=== PATIENT | female | born 1980 | race Caucasian/White ===

== ENCOUNTER → 2019-01-22 | Day surgery (SDC) | payer BC, OTHER ==
--- NOTE | 2019-01-21 11:30 | Pre Op History & Physical ---
DATE OF SURGERY: 01/22/2019 CHIEF COMPLAINT: Aural fullness bilaterally with chronic sinusitis and nasal obstruction. HISTORY OF PRESENT ILLNESS: This 38 years old female has aural fullness on the right side with some unsteadiness. The patient also has nasal obstruction and postnasal drip. The patient denies any otalgia. She has nausea. The patient has no surgery to the ear. She denies any tinnitus. The patient's nasal obstruction is bilateral with postnasal drip and discharge from her nose. She does complain of frontal and maxillary pain. The patient had an audiogram in October that showed that she has speech discrimination of 100% bilaterally with normal pure tone. The patient has a tympanogram which showed that she has normal type B tympanogram. CT scan of paranasal sinuses done before surgery showed the patient has chronic sinusitis with maxillary sinus involvement, sphenoid sinus involvement and confirmed deviated nasal septum to the left side. The patient also had an MRI of the skull base, which did not show any IC abnormality. The MRI did confirm the patient still has chronic sinusitis. The patient has been seen by steel plate printer and also a neurologist for her condition. I have also discussed with the patient the possibility of subclinical Meniere's disease that is giving her the aural fullness. REVIEW OF SYSTEMS: System review showed no recent cardiovascular, respiratory, or GI problem. PAST MEDICAL HISTORY: The patient has no significant medical problem. PAST SURGICAL HISTORY: The patient had previous tonsillectomy, lymph node biopsy, knee surgery, and surgery on her teeth. ALLERGIES: SHE IS ALLERGIC TO AUGMENTIN AND VICODIN. MEDICATIONS: She is on [place] Thyroid and also Paxil. SOCIAL HISTORY: She stopped smoking about 12 years ago. She is a social drinker. FAMILY HISTORY: Noncontributory. PHYSICAL EXAMINATION: VITAL SIGNS: On examination, patient's vital signs were within normal limits. The patient was seen with her . HEENT: Ear exam showed normal tympanic membranes bilaterally. Nasal exam showed deviated nasal septum on the right side about 40%, left side about 30%. Oropharynx and oral cavity showed no tonsils with Mallampati level II. NECK: Showed no lymph node or thyroid palpable. CHEST: Showed good air entry bilaterally. CARDIOVASCULAR: Showed S1, S2. No murmur noted. ASSESSMENT AND PLAN: Ms. Suarez has chronic sinusitis, nasal obstruction, aural fullness, worse on the right side with possible eustachian tube dysfunction, which has been resistant to conservative therapy. The suggested treatments are endoscopic sinus surgery, septoplasty, bilateral myringotomy and tubes and other necessary procedure. Complication of procedure includes, but not limited to bleeding, infection, CSF leak, blindness, double vision, meningitis, septal perforation, septal hematoma, persistent nasal obstruction, persistent nasal crusting, nasal deformity, recurrence of the sinus problem along with TM perforation, persistent drainage from the ear, hearing loss, persistent recurrence of the aural fullness and unsteadiness. Alternatives will be continue observation, continue antibiotic therapy, topical nasal steroid therapy, systemic steroid therapy decongestant and treatment for her Meniere's disease. I have discussed the condition with the patient. The patient has elected to undergo the surgical procedure. I have emphasized that since her tympanogram was normal unlikely that her aural fullness is secondary to eustachian tube problem. However, because of the question of Meniere disease with her electrolyte problem, it might not be a bad idea to also give her some Decadron intraoperatively in the middle ear to see if that would relieve her aural fullness. The patient has elected to undergo the surgical procedure. MD YASMANI Maguire/NICOLE /[id number]
[~2019-01-22] MED LIST: AMLODIPINE BESYL5 MG PO; ARMOUR THYROID60 MG PO; DEXAMETHASONE PHOS 24 MG/ML 10ML VIAL ONE; DEXAMETHASONE SOD PHOS INJ 4 MG/ML VIAL ONE; EPINEPHRINE HCL 1:1000 1ML 1 MG/ML AMP ONE; FENTANYL CITRATE/PF 100MCG/2 ML INJ ONE; KETOROLAC TROMETHAMINE 30 MG/ML VIAL ONE; LIDOCAINE 1% W/EPINEPHRINE 20 ML VIAL ONE; LIDOCAINE HCL 2% LOCAL INJ 5 ML SDV VIAL INJ ONE; LISINOPRIL10 MG PO; MIDAZOLAM HCL 2 MG/2 ML VIAL ONE; OFLOXACIN 0.3% (OTIC SOL) 5 ML BTL ONE; ONDANSETRON HCL INJ 2MG/ML 2ML 2 MG/ML VIAL ONE; PAXIL40 MG PO; PROPOFOL IV EMULSION 10 MG/ML 20 ML VIAL ONE; ROCURONIUM BROMIDE 10 MG/ML 5ML VIAL ONE; SEVOFLURANE INHAL SOLN 250 ML PEN BTL ONE; VITAMIN D10000 UNIT PO
--- OUTSIDE RECORDS SUMMARY | 2019-01-22 06:20 | XMS REPORT | Clinical Summary ---
Author Author [facility] Organization [facility] Address Unknown Phone Unavailable Care Team Providers Care Engineering Officer Name Role Phone Nathan Basilio MD PCP Unavailable Allergies Comments Active Allergy Reactions Severity Noted Date Hydrocodone-Acetaminophen Itching 10/31/2017 Medications End Date Status Medication Sig Dispensed Refills Start Date Active PARoxetine (PAXIL) 30 MG Take 30 mg by 0 tablet mouth 2 (two) times a day. Active thyroid, pork, (ARMOUR Take 60 mg by 0 THYROID) 60 mg tablet mouth daily. 07/10/2018 Discontinued PARoxetine (PAXIL) 20 MG Take 20 mg by 0 tablet mouth every morning. 07/10/2018 Discontinued multivitamin with Take 1 tablet 0 minerals tablet by mouth daily. Active Problems Problem Noted Date Depression with anxiety 07/10/2018 Hypothyroidism 07/10/2018 BMI 30.0-30.9,adult 07/10/2018 Family history of diabetes mellitus 07/10/2018 Family history of hyperlipidemia 07/10/2018 Encounters Care Team Description Date Type Specialty Rose Lopes MA 07/13/2018 Telephone Family Medicine Nathan Basilio MD Neck deformity, acquired 07/11/2018 Hospital Radiology Encounter Lana Petty NP Depression with anxiety (Primary Dx); Hypothyroidism, unspecified type; BMI 30.0-30.9,adult; Family history of diabetes mellitus; Family history of hyperlipidemia; Class 1 obesity due to excess calories without serious comorbidity with body mass index (BMI) of 30.0 to 30.9 in adult; Encounter for routine adult health examination without abnormal findings; Neck deformity, acquired 07/10/2018 Office Visit Family Medicine after 01/21/2018 Family History Medical History Relation Name Comments Diabetes Father Heart disease Father Hyperlipidemia Father Hypertension Father Depression Mother Diabetes Mother Hypertension Mother Relation Name Status Comments Father Mother Social History Date Tobacco Use Types Packs/Day Years Used Quit: 2006 Former Smoker Cigarettes 2 10 Smokeless Tobacco: Never Used Tobacco Cessation: Counseling Given: No Alcohol Use Drinks/Week oz/Week Comments Yes DAILY Sex Assigned at Date Recorded Not on file Industry Job Start Date Occupation Not on file Not on file Not on file Travel End Travel History Travel Start No recent travel history available. Last Filed Vital Signs Time Taken Vital Sign Reading 07/10/2018 4:04 PM [employer] Blood Pressure 123/78 07/10/2018 4:04 PM [employer] Pulse 75 07/10/2018 4:04 PM [employer] Temperature 37.1 C (98.7 F) 07/10/2018 4:04 PM [employer] Respiratory Rate 16 07/10/2018 4:04 PM [employer] Oxygen Saturation 98% - Inhaled Oxygen - Concentration 07/10/2018 4:04 PM [employer] Weight 94.5 kg (208 lb 6.4 oz) 07/10/2018 4:04 PM [employer] Height 175.3 cm (5' 9") 07/10/2018 4:04 PM [employer] Body Mass Index 30.78 Plan of Treatment Health Maintenance Due Date Last Done Comments INFLUENZA VACCINE 01/31/2019 Procedures Comments Procedure Name Priority Date/Time Associated Diagnosis XR CERVICAL SPINE 2 OR 3 Routine 07/11/2018 Neck deformity, acquired VW 4:35 PM [employer] after 01/21/2018 Results * XR Cervical Spine 2 Or 3 Vw (07/11/2018 4:35 PM [employer]) Specimen Narrative Performed At EXAMINATION: XR CERVICAL SPINE 2 OR 3 VW [facility] CLINICAL HISTORY: M95.3 Acquired deformity of neck, neck deformity COMPARISON:None IMPRESSION: No displaced fracture. Mild reversal normal cervical lordosis at C4-5. Mild degenerative endplate changes at C4-5 and C5-6 with small anterior osteophytes and mild disc height loss. Prevertebral soft tissue thickness is within normal limits. [facility]-[id number] Procedure Note Hm Interface, Radiology Results Incoming - 07/11/2018 4:41 PM [employer] EXAMINATION: XR CERVICAL SPINE 2 OR 3 VW CLINICAL HISTORY: M95.3 Acquired deformity of neck, neck deformity COMPARISON: None IMPRESSION: No displaced fracture. Mild reversal normal cervical lordosis at C4-5. Mild degenerative endplate changes at C4-5 and C5-6 with small anterior osteophytes and mild disc height loss. Prevertebral soft tissue thickness is within normal limits. [facility]-[id number] Performing Organization Address City/State/Zipcode Phone Number [facility] [phone] [place] [address] after 01/21/2018 Insurance Type Payer Benefit Subscriber ID Effective Phone Address Plan / Dates Group HMO [employer] LEILATNA xxxxxxxxxx [id number] HMO,POS,EP resent O, [facility] Advance Directives Patient has advance care planning documents on file. For more information, elvin ontiveros contact: Per [place] [address] [place] [address]
--- NOTE | 2019-01-22 07:10 | NUR ---
SPIRITUAL CARE - Pre-Surgery Assessment: Pt in bed. Pt's at bedside. Pt reported supportive attention from family and friends. Intervention: I provided pastoral presence, hospitality, and sympathetic listening. I acquainted pt with availability of teacher theater arts while hospitalized. Outcome: Pt expressed appreciation for visit. No need for follow up indicated at this time. MANAV [facility] Spiritual Care Department O: [phone] Pager: [phone] ([phone] number calling from)
[2019-01-22 11:05] VITALS: BP 121/81
--- NOTE | 2019-01-22 11:36 | Operative Report ---
DATE OF PROCEDURE: 01/22/2019 SURGEON: Antoine River MD CHIEF COMPLAINT: Chronic sinusitis, nasal obstruction with eustachian tube dysfunction versus subclinical Meniere with aural fullness right vs more so than the left. POSTOPERATIVE DIAGNOSES: Chronic sinusitis, nasal obstruction with eustachian tube dysfunction versus subclinical Meniere with aural fullness right vs more so than the left with adenoid hypertrophy also. OPERATIVE PROCEDURES: Bilateral anterior and posterior ethmoidectomy, bilateral maxillary sinus antrostomy, bilateral resection of polyps from maxillary antrum, bilateral sphenoidectomy, bilateral resection of kristen bullosa, adenoidectomy, bilateral myringotomy and tubes and Decadron instillation in the right middle ear. ANESTHESIA: Anesthesiology group. INDICATIONS: This 38-year-old female, who has history of nasal obstruction, postnasal drip discharge from her nose. The patient also has aural fullness, worse on the right side. The patient's condition has been treated with topical nasal steroid, decongestant, antibiotics, and with no improvement. The CT scan of paranasal sinuses done before surgery showed the patient has chronic sinusitis involvement of the ethmoid sinuses on both sides in the posterior ethmoid sinus, maxillary sinus involvement, worse on the left side, sphenoid sinus involvement, worse on the left and slightly hypertrophy of adenoid tissue. No effusion was noted on the middle ear cleft on the CT of the sinus. An audiogram that was done showed the patient has normal pure tone with speech discrimination of 100% bilaterally with a type B tympanogram. I discussed with the patient regarding her aural fullness, eustachian tube dysfunction versus subclinical Meniere. The patient also has some unsteadiness, so Meniere disease cannot be ruled out. I have given her the options for Maxzide before bilateral myringotomy and tubes versus bilateral myringotomy and tubes and then Decadron instillation to the right middle ear cleft. The patient has elected to undergo the bilateral myringotomy and tubes even though the left side is not as significant and agree on the Decadron instillation. Her sinus condition has not been responding to medical therapy, so the patient has elected to undergo endoscopic sinus surgery and possible adenoidectomy and bilateral myringotomy tubes and Decadron instillation into the right middle ear. DESCRIPTION OF PROCEDURE: The patient was taken to operating room, put under general anesthesia, endotracheally intubated. The nose was injected with 1% Xylocaine with 1:100,000 epinephrine for hemostasis. Epinephrine-soaked pledget was inserted into the nose. These were subsequently removed. The left paranasal sinuses were approached first. Middle turbinate was medialized. The lateral portion of the middle turbinate was dissected by resecting the kristen bullosa. The bulla ethmoidalis was entered. Anterior and posterior ethmoid sinuses were dissected in a systematic fashion. Care was taken during dissection to ascertain that the orbit was not entered. Inflamed tissue was noted in anterior and posterior ethmoid sinus area, more so in the posterior ethmoid sinus cavity. The sphenoid sinus was entered through the natural ostium. This was enlarged using a microshaver. Inflamed tissue was noted in the sphenoid sinus and removed using a microshaver. Using a curved probe, the natural ostium of the maxillary sinuses was entered. This was enlarged anteriorly and posteriorly using a backbiter and Thru-Cut forceps respectively. Inflamed tissue was noted in the anterior-inferior portion of the maxillary antrum. This was dissected using 120 degree tip of the microshaver. The right paranasal sinuses were approached. The middle turbinate was medialized. The bulla ethmoidalis was entered, anterior and posterior ethmoid sinuses were dissected in a systematic fashion. Inflamed tissue was noted in both the anterior and posterior ethmoid sinus area. Again, worse more so in the posterior ethmoid sinus cavity. The lateral portion of the middle turbinate was dissected on the right side by resecting the kristen bullosa. The sphenoid sinus was entered through the natural ostium. This was enlarged using a microshaver. Inflamed tissue was noted in the sphenoid sinus. This was dissected using the microshaver. Using a curved probe, the natural ostium and maxillary sinus was entered. This was enlarged anteriorly and posteriorly using backbiter and Thru-cut forceps respectively. Inflamed tissue in the maxillary antrum was dissected using the microshaver. The nasal cavities and nasopharynx were examined. The adenoid tissue was noted to be blocking almost 50% of the posterior nasal airway. This was dissected systematically using the 0-degree endoscope and a microshaver. Hemostasis in the adenoid bed was achieved using the suction cautery. Before the adenoidectomy was performed the soft palate was examined. No submucous cleft was noted. NasoPore was inserted in the sinus cavities on either side. This was done to prevent synechiae formation and for hemostasis. The bilateral myringotomy and tubes were performed. The right ear was examined. The ear canal was debrided. A myringotomy was done in anterior superior quadrant. No effusion was noted in the middle ear cleft. Whyte grommet tube was inserted. 1 mL of Decadron 24 mg/mL was injected in the middle ear cleft. The left ear was examined. The ear canal was debrided. Myringotomy was done in anterior superior quadrant. No effusion was noted in the left middle ear cleft. Whyte grommet tube was inserted. The patient tolerated the above procedure well with estimated blood loss about 20 to 30 mL. She was given 20 mg of Decadron intraoperatively. The patient was able to be transferred to recovery room in stable condition. MD YASMANI Maguire/NICOLE /[id number]
== END | disposition home or self-care (01) ==
LOC: OR 06:16
PROVIDERS: ATTEND Otolaryngology Otolaryngology/Facial Plastic Surgery
DX: J32.0 Chronic maxillary sinusitis (principal); J32.2 Chronic ethmoidal sinusitis; J32.3 Chronic sphenoidal sinusitis; J35.2 Hypertrophy of adenoids; H93.8X3 Other specified disorders of ear, bilateral; J34.89 Other specified disorders of nose and nasal sinuses; J33.8 Other polyp of sinus; J34.2 Deviated nasal septum; I10 Essential (primary) hypertension; F41.9 Anxiety disorder, unspecified; F32.9 Major depressive disorder, single episode, unspecified; Z87.891 Personal history of nicotine dependence
CPT/HCPCS: 31240; 31259; 31267; 36415; 42831; 69436; 81025; 84132; 88304; 93005; J0171; J2250; J2405; J3010